=== PATIENT | female | born 1990 | race American Indian/Alaskan Native ===

== ENCOUNTER 2019-06-26 22:38 | Emergency (ER) | payer OTHER ==
[2019-06-27] MEDS ORDERED: CYCLOBENZAPRINE 10 MG TAB PO ONE (03:14)
[2019-06-27] MEDS ORDERED: ACETAMINOPHEN 500 MG TAB PO ONE (03:14)
[2019-06-27] MEDS ORDERED: IBUPROFEN 600 MG TAB PO ONE (03:14)
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
[2019-06-27 05:46] VITALS: BP 114/70
== END 2019-06-27 05:45 | disposition home or self-care (01) ==
LOC: ED 22:38
DX: S43.401A Unspecified sprain of right shoulder joint, initial encounter (principal); S20.211A Contusion of right front wall of thorax, initial encounter; F12.10 Cannabis abuse, uncomplicated; V49.59XA Passenger injured in collision with other motor vehicles in traffic accident, initial encounter; Y93.89 Activity, other specified; Y92.410 Unspecified street and highway as the place of occurrence of the external cause; Y99.8 Other external cause status